=== PATIENT | female | born 1970 | race Caucasian/White ===

== ENCOUNTER 2019-08-14 01:51 | Emergency (ER) | payer MEDICAID ==
[~2019-08-14] VITALS: Ht 162.6 cm; Wt 82.0 kg
[2019-08-14] MEDS ORDERED: DIPHENHYDRAMINE 50MG/ML VIAL IV ONE (05:45)
[2019-08-14] MEDS ORDERED: ENALAPRIL 2.5MG/2ML VIAL 2ML IV ONE (05:45)
[2019-08-14] MEDS ORDERED: METOCLOPRAMIDE HCL 10MG/2ML VIAL IV ONE (05:45)
[2019-08-14 06:10] LABS: BASOPHILS % 0.5 % (0.0-2.0); EOSINOPHILS % 1.4 % (0.0-5.0); HEMATOCRIT. 36.5 % (36.0-48.0); HEMOGLOBIN. 12.4 g/dL (12.0-16.0); LYMPHOCYTES % 30.5 % (20.0-50.0); MEAN CORPUSCULAR HEMOGLOBIN 29.3 pg (28.0-32.0); MEAN CORPUSCULAR VOLUME 86.1 fL (81.0-99.0); MEAN PLATELET VOLUME 8.5 fl (7.4-10.4); MONOCYTES % 5.3 % (2.0-8.0); NEUTROPHILS % 62.3 % (40.0-76.0); PLATELET 240 x1000/uL (130-400); RED BLOOD CELL COUNT 4.23 mill/uL (4.2-5.4)
[2019-08-14 06:13] LABS: CHLORIDE 106 mEq/L (98-107)
[2019-08-14] MEDS ORDERED: SODIUM CHLORIDE 0.9% 500 ML IV ONE (06:24)
[2019-08-14 06:41] LABS: HCG SCREEN NEGATIVE
[2019-08-14 07:20] VITALS: BP 133/82
== END 2019-08-14 07:50 | disposition home or self-care (01) ==
LOC: ER 02:39
DX: I10 Essential (primary) hypertension (principal); E11.9 Type 2 diabetes mellitus without complications
CPT/HCPCS: 36415; 70450; 80048; 82962; 84484; 84703; 85025; 93005; 96361; 96374; 96375; 99284; J1200; J2765; J3490

== ENCOUNTER 2021-05-28 19:47 | Emergency (ER) | payer MEDICAID ==
[~2021-05-28] VITALS: Ht 167.6 cm; Wt 90.0 kg
[2021-05-28] MEDS ORDERED: IBUPROFEN 600MG TABLET PO ONE (20:45)
[2021-05-28] MEDS ORDERED: IBUP-2028 MT (21:01)
[2021-05-29 00:05] VITALS: BP 144/74
== END 2021-05-29 00:51 | disposition home or self-care (01) ==
LOC: ER 19:47
DX: R51.9 Headache, unspecified (principal); M25.511 Pain in right shoulder; G89.11 Acute pain due to trauma; S00.81XA Abrasion of other part of head, initial encounter; S60.511A Abrasion of right hand, initial encounter; M25.512 Pain in left shoulder; I10 Essential (primary) hypertension; Y07.59 Other non-family member, perpetrator of maltreatment and neglect; Y04.2XXA Assault by strike against or bumped into by another person, initial encounter; Y93.89 Activity, other specified; Y92.89 Other specified places as the place of occurrence of the external cause
CPT/HCPCS: 73030; 73130; 99284

== ENCOUNTER 2021-06-02 15:30 | Emergency (ER) | payer MEDICAID ==
[~2021-06-02] VITALS: Ht 165.1 cm; Wt 79.0 kg
[~2021-06-02 15:30] MED LIST: IBUP-2028 MT
[2021-06-02 23:22] LABS: BASOPHILS % 0.5 % (0.0-2.0); EOSINOPHILS % 0.7 % (0.0-5.0); HEMATOCRIT. 36.2 % (36.0-48.0); HEMOGLOBIN. 12.7 g/dL (12.0-16.0); LYMPHOCYTES % 26.4 % (20.0-50.0); MEAN CORPUSCULAR HEMOGLOBIN 29.9 pg (28.0-32.0); MEAN CORPUSCULAR VOLUME 85.4 fL (81.0-99.0); MEAN PLATELET VOLUME 8.6 fl (7.4-10.4); MONOCYTES % 3.8 % (2.0-8.0); NEUTROPHILS % 68.6 % (40.0-76.0); PLATELET 291 x1000/uL (130-400); RED BLOOD CELL COUNT 4.24 mill/uL (4.2-5.4); RED CELL DISTRIBUTION WIDTH 13.3 % (11.6-14.6)
[2021-06-02 23:28] LABS: CHLORIDE 105 mEq/L (98-107)
[2021-06-02 23:45] LABS: PARTIAL THROMBOPLASTIN TIME 25.9 sec (23.4-31.0); PROTHROMBIN TIME 10.4 sec (9.6-11.0)
[2021-06-03 00:17] LABS: HCG SCREEN NEGATIVE
[2021-06-03 00:39] LABS: CLARITY URINE CLOUDY (CLEAR); COLOR URINE YELLOW (YELLOW); KETONES URINE NEGATIVE (NEGATIVE); LEUKOCYTE ESTERASE URINE NEGATIVE (NEGATIVE); NITRITE URINE POSITIVE (NEGATIVE); OCCULT BLOOD URINE 3+ (NEGATIVE); PROTEIN URINE TRACE (NEGATIVE); SPECIFIC GRAVITY URINE 1.013 (1.005-1.030)
[2021-06-03] MEDS ORDERED: CEPH500C2 MT (01:16)
[2021-06-03 01:59] VITALS: BP 158/80
== END 2021-06-03 02:09 | disposition home or self-care (01) ==
LOC: ER 15:48
DX: N95.0 Postmenopausal bleeding (principal); R74.8 Abnormal levels of other serum enzymes; I10 Essential (primary) hypertension
CPT/HCPCS: 36415; 76830; 76856; 80053; 81003; 81025; 84703; 85025; 99284

== ENCOUNTER 2021-11-03 20:01 | Emergency (ER) | payer MEDICAID ==
[~2021-11-03] VITALS: Ht 170.2 cm; Wt 73.0 kg
[~2021-11-03 20:01] MED LIST changes: +CEPH500C2 MT
[2021-11-03] MEDS ORDERED: AMLO5TAB4 MT (22:25)
[2021-11-03 22:42] VITALS: BP 160/88
== END 2021-11-03 22:43 | disposition home or self-care (01) ==
LOC: ER 20:01
DX: I10 Essential (primary) hypertension (principal); E11.65 Type 2 diabetes mellitus with hyperglycemia; Z79.4 Long term (current) use of insulin
CPT/HCPCS: 82962; 99283